=== PATIENT | male | born 1990 | race African-American/Black ===

== ENCOUNTER 2020-05-31 22:42 | Inpatient (IN) ==
[2020-05-31] MEDS ORDERED: LORazepam 2 MG/4 ML VIAL IV STA (23:32)
[2020-05-31 23:48] LABS: Basophils # (auto) 0.01 K/uL (0-0.2); Basophils % (auto) 0.1 %; Eosinophils # (auto) 0.01 K/uL (0-0.5); Eosinophils % (auto) 0.1 %; Hematocrit (blood only) 37.6 % (42-52); Hemoglobin 13.4 g/dL (14.0-18.0); Immature Granulocytes # (auto) 0.02 K/uL (0.00-0.02); Immature Granulocytes % (auto) 0.2 %; Lymphocytes # (auto) 0.64 K/uL (1.2-3.4); Lymphocytes % (auto) 7.6 %; Mean Corpuscular Hemoglobin 35.1 pg (25-34); Mean Corpuscular Hgb Conc 35.6 g/dL (32-36); Mean Corpuscular Volume 98.4 fL (80-100); Mean Platelet Volume 9.9 fL (7.4-10.4); Monocytes # (auto) 0.74 K/uL (0.11-0.59); Monocytes % (auto) 8.8 %; Neutrophils # (auto) 6.97 K/uL (1.4-6.5); Neutrophils % (auto) 83.2 %; Platelet Count 259 K/uL (130-400); RDW Coefficient of Variation 13.4 % (11.5-14.5); RDW Standard Deviation 48.3 fL (36.4-46.3); Red Blood Count 3.82 M/uL (4.7-6.1); White Blood Count 8.39 K/uL (4.8-10.8)
[2020-05-31] MEDS ORDERED: KETOROLAC TROMETHAMINE 15 MG/ML VIAL IV STA (23:51)
--- NOTE | 2020-05-31 23:53 | Emergency Department Note ---
Impression & Plan Alcohol withdrawal seizure, Headache, Open wound of tongue due to bite ED Provider Note Provider: Maico Jain MD DATE OF SERVICE: 05/31/2020 CHIEF COMPLAINT: Seizure HISTORY OF PRESENT ILLNESS: Patient is a 29-year-old gentleman history of Crohn's disease and C. difficile colitis presenting from [facility] today via ambulance after seizure type event. By report the patient evidently just arrived there this evening from [facility] for rehab from alcohol usage. Denies other drug usage. States his last drink of alcohol was at about 24 hours ago and was liquor. Denies any hallucinations. Patient states he was sitting waiting to be registered and checked in when all of a sudden he lost consciousness. Next member waking up with people around him of having a headach e and feeling generally weak all over and having some pain in his tongue. Patient states he does have a history of withdrawal seizures last about a month ago. Not on seizure medication. EMS reports the patient evidently fell forward striking his face and seizure lasted approximately 10 minutes. Did not receive any medications prior to arrival or at the facility today. Patient denies significant abdominal pain or issues with diarrhea at this time. States he currently has a headache and his tongue hurts. Denies incontinence. Denies any hallucinations. REVIEW OF SYSTEMS: A total of 10 review of systems was obtained and negative except as stated above in the HPI. PAST MEDICAL HISTORY: As noted above MEDICATIONS: Reviewed home medication list, chronically on prednisone SOCIAL HISTORY: Denies drug use, reports regular heavy alcohol use last 24 hours ago PHYSICAL EXAM: GENERAL: alert and oriented in no acute distress on stretcher Head: normocephalic with some swelling of the lower lip with some slight ecchymosis. EYES: No injection, discharge or icterus. PERRL NECK: Trachea midline. Supple. ENT: Mucous membranes pink and moist with bilateral contusion and some slight small lacerations to the lateral edges of the tongue consistent with bite longo. Pharynx without erythema or exudate. LUNGS: Airway patent. No retractions. Breath sounds clear with good air entry bilaterally. HEART: Regular rate and rhythm. No chest wall tenderness ABDOMEN: Soft and non-tender, without guarding or rebound. SKIN: Acyanotic, warm, dry, without rashes EXTREMITIES: Without swelling, tenderness or deformity NEUROLOGICAL: No focal deficits. No aphasia. No facial droop or slurred speech. EK beats per normal sinus rhythm. No PVC or PAC. No acute ST segment elevation or depression. QTC 457 CONTINUOUS CARDIAC MONITORING: was ordered and showed a heart rate of 90 bpm in normal sinus rhythm PDMP was checked without noted issue. GCS 15. Patient's laboratory studies and imaging reviewed. Differential includes Epilepsy, infection, hypoglycemia, electrolyte abnormalities, cardiac sources, intracerebral event, trauma, toxicologic, neurologic, syncope, as well as other pathologies. IMPRESSION/MEDICAL DECISION MAKING: Patient presents with what sounds like a seizure likely withdrawal given recent cessation of alcohol use 24 hours prior. Not significantly hypertensive or tachycardic now denies hallucinations. Does report a history of seizures. Currently on prednisone. Patient does not appear meningitic and doubt infection. Basic labs, medical alcohol, EKG and given that he fell a CT of the head were obtained. CT the head per report below without significant findings. Does have some significant trauma to the tongue as well as some bruising and swelling to the lower lip. No acute dental injury appreciated. Nothing here that requires closure or repair but again seems consistent with seizure. Prophylactically given a dose of IV Ativan here given recent alcohol usage. Labs without significant leukocytosis and again doubt infection. Do note a borderline anemia. No significant electrolyte abnormality. AST 49 ALT 54 not significantly abnormal. Alcohol level undetectable. No anion gap appreciated. Given some Toradol and some Tylenol help with headache. Patient reevaluation not significantly hypertensive or tachycardic. All does not appear to be in jesus withdrawal at this time given the seizure and his history discussed with patient further observation and he was in agreement this plan. Rapid Covid test ordered and negative. DIAGNOSIS: Alcohol withdrawal seizure, tongue bite, headache DISPOSITION: Hospitalist will evaluate Patient was agreeable with this plan. Preliminary Findings Only See Final Report For Complete Findings CT HEAD: No acute intracranial hemorrhage, edema or mass. No extra-axial fluid collection. No calvarial fracture. Visualized orbits, paranasal sinuses and mastoids are unremarkable. Radiologist: Nadeem Robledo M.D. Past Med/Surg History Social History Smoking Status: Never smoker Preferred Language: Lithuanian Feels Safe at Home: Yes Allergies Allergies Allergy/AdvReac Type Severity Reaction Status Date / Time metronidazole [From Flagyl] Allergy Severe Redness of Verified 06/01/20 00:15 Skin Home Meds Home Medications Medication Instructions Recorded Confirmed clonidine HCl 0.1 mg PO TID PRN 05/31/20 05/31/20 disulfiram 250 mg PO QAM 05/31/20 05/31/20 promethazine 25 mg PO Q6 PRN 05/31/20 05/31/20 Results & Data (ED) Vital Signs Vital Signs - 24 hr 05/31/20 22:50 05/31/20 23:00 05/31/20 23:15 Temperature 36.8 C Temperature Source Oral Pulse Rate 97 H 98 H Pulse Rate from SpO2 Sensor 99 H Respiratory Rate 14 16 Blood Pressure 110/76 111/76 Blood Pressure Mean 87 87 Pulse Oximetry 97 95 95 Oxygen Delivery Method Room Air Room Air Sepsis Recent Fever Within 48 Hours No Sepsis New/Unexplained Change in Mental Status No Sepsis Action Taken by Nursing No Action Required 05/31/20 23:27 05/31/20 23:30 06/01/20 00:00 Temperature Temperature Source Pulse Rate 95 H 90 83 Pulse Rate from SpO2 Sensor 95 H 90 83 Respiratory Rate 18 18 20 Blood Pressure 120/74 121/82 110/79 Blood Pressure Mean 89 95 89 Pulse Oximetry 100 98 96 Oxygen Delivery Method Room Air Sepsis Recent Fever Within 48 Hours Sepsis New/Unexplained Change in Mental Status Sepsis Action Taken by Nursing 06/01/20 00:30 06/01/20 01:00 06/01/20 01:30 Temperature Temperature Source Pulse Rate 90 93 H 87 Pulse Rate from SpO2 Sensor 91 H 92 H 87 Respiratory Rate 16 18 21 Blood Pressure 112/79 114/80 115/81 Blood Pressure Mean 90 91 92 Pulse Oximetry 96 95 97 Oxygen Delivery Method Room Air Room Air Room Air Sepsis Recent Fever Within 48 Hours Sepsis New/Unexplained Change in Mental Status Sepsis Action Taken by Nursing 06/01/20 02:00 Temperature Temperature Source Pulse Rate 89 Pulse Rate from SpO2 Sensor 90 Respiratory Rate 18 Blood Pressure 113/79 Blood Pressure Mean 90 Pulse Oximetry 96 Oxygen Delivery Method Room Air Sepsis Recent Fever Within 48 Hours Sepsis New/Unexplained Change in Mental Status Sepsis Action Taken by Nursing Laboratory Data Result diagrams: 05/31/20 23:36 05/31/20 23:36 Lab Results 05/31/20 05/31/20 05/31/20 Range/Units 23:36 23:36 23:36 WBC 8.39 (4.8-10.8) K/uL RBC 3.82 L (4.7-6.1) M/uL Hgb 13.4 L (14.0-18.0) g/dL Hct 37.6 L (42-52) % MCV 98.4 (80-100) fL MCH 35.1 H (25-34) pg MCHC 35.6 (32-36) g/dL RDW Std Deviation 48.3 H (36.4-46.3) fL RDW Coeff of Adele 13.4 (11.5-14.5) % Plt Count 259 (130-400) K/uL MPV 9.9 (7.4-10.4) fL Immature Gran % (Auto) 0.2 % Neut % (Auto) 83.2 % Lymph % (Auto) 7.6 % [place] % (Auto) 8.8 % Eos % (Auto) 0.1 % Baso % (Auto) 0.1 % Neut # (Auto) 6.97 H (1.4-6.5) K/uL Lymph # (Auto) 0.64 L (1.2-3.4) K/uL [place] # (Auto) 0.74 H (0.11-0.59) K/uL Eos # (Auto) 0.01 (0-0.5) K/uL Baso # (Auto) 0.01 (0-0.2) K/uL Immature Gran # (Auto) 0.02 (0.00-0.02) K/uL Sodium 138 (136-145) mmol/L Potassium 3.8 (3.5-5.1) mmol/L Chloride 103 (98-107) mmol/L Carbon Dioxide 27 (21-32) mmol/L Anion Gap 9.0 (3-11) BUN 13 (7-18) mg/dl Creatinine 1.16 (0.6-1.4) mg/dl Est Cr Clr Drug Dosing 108.0 ml/min Est GFR ( Amer) 99.5 Est GFR (Non-Af Amer) 85.8 BUN/Creatinine Ratio 11.1 (10-20) Glucose 92 (70-99) mg/dl Calcium 8.9 (8.5-10.1) mg/dl Magnesium 2.2 (1.8-2.4) mg/dl Total Bilirubin 1.6 H (0.2-1) mg/dl AST 49 H (15-37) U/L ALT 54 (12-78) U/L Alkaline Phosphatase 73 (45-117) U/L Total Protein 7.5 (6.4-8.2) gm/dl Albumin 3.7 (3.4-5.0) gm/dl Globulin 3.8 (2.5-4.0) gm/dl Albumin/Globulin Ratio 1.0 (0.9-2) Ethyl Alcohol mg/dL < 3.0 (0-3) mg/dl COVID-19 Eval Order SARS-CoV-2, RNA, NAAT (NEGATIVE) 06/01/20 06/01/20 Range/Units 01:12 01:12 WBC (4.8-10.8) K/uL RBC (4.7-6.1) M/uL Hgb (14.0-18.0) g/dL Hct (42-52) % MCV (80-100) fL MCH (25-34) pg MCHC (32-36) g/dL RDW Std Deviation (36.4-46.3) fL RDW Coeff of Adele (11.5-14.5) % Plt Count (130-400) K/uL MPV (7.4-10.4) fL Immature Gran % (Auto) % Neut % (Auto) % Lymph % (Auto) % [place] % (Auto) % Eos % (Auto) % Baso % (Auto) % Neut # (Auto) (1.4-6.5) K/uL Lymph # (Auto) (1.2-3.4) K/uL [place] # (Auto) (0.11-0.59) K/uL Eos # (Auto) (0-0.5) K/uL Baso # (Auto) (0-0.2) K/uL Immature Gran # (Auto) (0.00-0.02) K/uL Sodium (136-145) mmol/L Potassium (3.5-5.1) mmol/L Chloride (98-107) mmol/L Carbon Dioxide (21-32) mmol/L Anion Gap (3-11) BUN (7-18) mg/dl Creatinine (0.6-1.4) mg/dl Est Cr Clr Drug Dosing ml/min Est GFR ( Amer) Est GFR (Non-Af Amer) BUN/Creatinine Ratio (10-20) Glucose (70-99) mg/dl Calcium (8.5-10.1) mg/dl Magnesium (1.8-2.4) mg/dl Total Bilirubin (0.2-1) mg/dl AST (15-37) U/L ALT (12-78) U/L Alkaline Phosphatase (45-117) U/L Total Protein (6.4-8.2) gm/dl Albumin (3.4-5.0) gm/dl Globulin (2.5-4.0) gm/dl Albumin/Globulin Ratio (0.9-2) Ethyl Alcohol mg/dL (0-3) mg/dl COVID-19 Eval [facility], RNA, NAAT NEGATIVE (NEGATIVE) Administered Medications Discontinued Medications Acetaminophen (Acetaminophen 500 Mg Tab) 1,000 mg PO NOW STA Stop: 06/01/20 00:41 Last Admin: 06/01/20 01:32 Dose: 1,000 mg Documented by: [id number] Lorazepam (Ativan) 2 mg in 4 mls @ 4 mls/min IV NOW STA Stop: 05/31/20 23:33 Last Admin: 05/31/20 23:46 Dose: 4 mls/min Documented by: [id number] Ketorolac Tromethamine (Ketorolac Tromethamine 15 Mg/Ml Vial) 10 mg IV NOW STA Stop: 05/31/20 23:52 Last Admin: 06/01/20 00:00 Dose: 10 mg Documented by: [id number] Discharge Plan Visit Data Chief Complaint: Seizure Stated Complaint: SEIZURE, WITHDRAWAL ED Provider: Maico Jain Discharge Problem: Alcohol withdrawal seizure, Headache, Open wound of tongue due to bite Forms [facility] Prescriptions Prescriptions: No Action clonidine HCl 0.1 mg tablet 0.1 mg PO TID PRN (Reason: tremors) RF: 0 disulfiram 250 mg tablet 250 mg PO QAM RF: 0 promethazine 25 mg tablet 25 mg PO Q6 PRN (Reason: Nausea) RF: 0 Discharge Problem: Alcohol withdrawal seizure Qualifiers: Complication of substance-induced condition: uncomplicated Qualified Code(s): F10.230 - Alcohol dependence with withdrawal, uncomplicated Headache Qualifiers: Headache type: unspecified Headache chronicity pattern: acute headache Intractability: intractable Qualified Code(s): R51.9 - Headache, unspecified
[2020-06-01 00:06] LABS: Albumin Level 3.7 gm/dl (3.4-5.0); BUN Creatinine Ratio 11.1 (10-20); Calcium 8.9 mg/dl (8.5-10.1); Est GFR (African American) 99.5; Est GFR (Non-African American) 85.8; Magnesium 2.2 mg/dl (1.8-2.4); Potassium 3.8 mmol/L (3.5-5.1)
[2020-06-01 00:08] LABS: Bilirubin,Total 1.6 mg/dl (0.2-1); Globulin 3.8 gm/dl (2.5-4.0); Total Protein 7.5 gm/dl (6.4-8.2)
[2020-06-01] MEDS ORDERED: ACETAMINOPHEN 500 MG TAB PO STA (00:40)
--- NOTE | 2020-06-01 03:03 | History & Physical Report ---
Date of Service June 01, 2020 Assessment & Plan (1) Alcohol withdrawal seizure: Alcohol withdrawal seizure- Admit to monitored bed AWSS order set Placed on gabapentin standing orders per protocol Placed on as needed Ativan IV per protocol NSS + KCl 20 mEq 100 mils per hour Zofran 4 mg IV every 6 hours as needed Thiamine 100 mg p.o. daily Folic acid 1 mg p.o. daily Nephrocaps p.o. daily Present on Admission?: Yes (2) Open wound of tongue due to bite: Local care Present on Admission?: Yes History of Present Illness Chief Complaint: The patient presents to the emergency department via ambulance after presenting to [facility] [place] today with seizure type activity Primary Care Provider: NO PCP The patient is a 29-year-old male with a past medical history including Crohn's disease, C. difficile colitis, alcohol abuse and previous alcohol withdrawal seizures. He presented to [facility] [place] today as a transfer from [facility] for rehab from alcohol abuse. Patient was waiting to be registered to check in when he suddenly lost consciousness. During the seizure activity he did bite his tongue, and complained of a headache. He did have a history of withdrawal seizures 1 month ago. Allergies Allergy/AdvReac Type Severity Reaction Status Date / Time metronidazole [From Flagyl] Allergy Severe Redness of Verified 06/01/20 00:15 Skin Home Medications Medication Instructions Recorded Confirmed Type clonidine HCl 0.1 mg PO TID PRN 05/31/20 05/31/20 History disulfiram 250 mg PO QAM 05/31/20 05/31/20 History promethazine 25 mg PO Q6 PRN 05/31/20 05/31/20 History Past Med/Surg History Social History Smoking Status: Never smoker Preferred Language: Upper Sorbian Feels Safe at Home: Yes Review of Systems Review of Systems: The patient denies chest pain, palpitations, shortness of breath, dyspnea on exertion, cough, lower extremity swelling, sore throat, fevers, chills, sweats, nausea, vomiting, diarrhea , constipation, abdominal pain, pelvic pain, blood in urine or stool, dysuria, urinary frequency or urgency,rash, abnormal bruising or bleeding, imbalance, focal weakness, numbness or tingling in arms or legs, generalized arthralgias or myalgias, back or neck pain, or night sweats. The review of systems is otherwise negative other than for that already noted above, and at least 10 systems have been reviewed. Physical Exam Physical Exam: The patient is awake, alert and oriented 3, well developed and well nourished, normocephalic and atraumatic, lying in bed and in no acute distress. HEENT--PERRL, EOMI, mucous membranes and oropharynx dry. Laceration right side of tongue. Neck--supple. No JVD. No bruits. Thyroid normal, trachea midline, no adenopathy. Heart--normal S1 and S2. No murmurs, rubs or gallops. Lungs--clear bilaterally, no respiratory distress, no accessory muscle use. Abdomen--normal bowel sounds and soft. Nontender. Nondistended, no hernias or masses, no organomegaly. Extremities--no cyanosis or clubbing. No edema. Dermatologic--normal skin turgor, normal color, no abnormal lymph nodes, no rash. Neurologic--cranial nerves II through XII grossly intact. Rheumatologic--normal range of motion. Psychiatric--normal affect. Results & Data Results & Data ([facility]) Vital Signs (Past 12 Hours) Vital Signs Temp Pulse Resp BP Pulse Ox 06/01/20 02:30 84 21 127/90 96 06/01/20 02:00 89 18 113/79 96 06/01/20 01:30 87 21 115/81 97 06/01/20 01:00 93 H 18 114/80 95 06/01/20 00:30 90 16 112/79 96 06/01/20 00:00 83 20 110/79 96 05/31/20 23:30 90 18 121/82 98 05/31/20 23:27 95 H 18 120/74 100 05/31/20 23:15 95 05/31/20 23:00 98 H 16 111/76 95 05/31/20 22:50 98.2 F 97 H 14 110/76 97 Laboratory Results Laboratory Results WBC 8.39 K/uL (4.8-10.8) 05/31/20 23:36 RBC 3.82 M/uL (4.7-6.1) L 05/31/20 23:36 Hgb 13.4 g/dL (14.0-18.0) L 05/31/20 23:36 Hct 37.6 % (42-52) L 05/31/20 23:36 MCV 98.4 fL (80-100) 05/31/20 23:36 MCH 35.1 pg (25-34) H 05/31/20 23:36 MCHC 35.6 g/dL (32-36) 05/31/20 23:36 RDW Std Deviation 48.3 fL (36.4-46.3) H 05/31/20 23:36 RDW Coeff of Adele 13.4 % (11.5-14.5) 05/31/20 23:36 Plt Count 259 K/uL (130-400) 05/31/20 23:36 MPV 9.9 fL (7.4-10.4) 05/31/20 23:36 Immature Gran % (Auto) 0.2 % 05/31/20 23:36 Neut % (Auto) 83.2 % 05/31/20 23:36 Lymph % (Auto) 7.6 % 05/31/20 23:36 [place] % (Auto) 8.8 % 05/31/20 23:36 Eos % (Auto) 0.1 % 05/31/20 23:36 Baso % (Auto) 0.1 % 05/31/20 23:36 Neut # (Auto) 6.97 K/uL (1.4-6.5) H 05/31/20 23:36 Lymph # (Auto) 0.64 K/uL (1.2-3.4) L 05/31/20 23:36 [place] # (Auto) 0.74 K/uL (0.11-0.59) H 05/31/20 23:36 Eos # (Auto) 0.01 K/uL (0-0.5) 05/31/20 23:36 Baso # (Auto) 0.01 K/uL (0-0.2) 05/31/20 23:36 Immature Gran # (Auto) 0.02 K/uL (0.00-0.02) 05/31/20 23:36 Sodium 138 mmol/L (136-145) 05/31/20 23:36 Potassium 3.8 mmol/L (3.5-5.1) 05/31/20 23:36 Chloride 103 mmol/L (98-107) 05/31/20 23:36 Carbon Dioxide 27 mmol/L (21-32) 05/31/20 23:36 Anion Gap 9.0 (3-11) 05/31/20 23:36 BUN 13 mg/dl (7-18) 05/31/20 23:36 Creatinine 1.16 mg/dl (0.6-1.4) 05/31/20 23:36 Est Cr Clr Drug Dosing 108.0 ml/min 05/31/20 23:36 Est GFR ( Amer) 99.5 05/31/20 23:36 Est GFR (Non-Af Amer) 85.8 05/31/20 23:36 BUN/Creatinine Ratio 11.1 (10-20) 05/31/20 23:36 Glucose 92 mg/dl (70-99) 05/31/20 23:36 Calcium 8.9 mg/dl (8.5-10.1) 05/31/20 23:36 Magnesium 2.2 mg/dl (1.8-2.4) 05/31/20 23:36 Total Bilirubin 1.6 mg/dl (0.2-1) H 05/31/20 23:36 AST 49 U/L (15-37) H 05/31/20 23:36 ALT 54 U/L (12-78) 05/31/20 23:36 Alkaline Phosphatase 73 U/L (45-117) 05/31/20 23:36 Total Protein 7.5 gm/dl (6.4-8.2) 05/31/20 23:36 Albumin 3.7 gm/dl (3.4-5.0) 05/31/20 23:36 Globulin 3.8 gm/dl (2.5-4.0) 05/31/20 23:36 Albumin/Globulin Ratio 1.0 (0.9-2) 05/31/20 23:36 Ethyl Alcohol mg/dL < 3.0 mg/dl (0-3) 05/31/20 23:36 COVID-19 Eval Order Covid19 [facility]Now [facility] 06/01/20 01:12 SARS-CoV-2, RNA, NAAT NEGATIVE (NEGATIVE) 06/01/20 01:12 Diagnostic Findings [facility] Patient: CHARLES SANCHEZ (Male) : 89 Status: ER Date: 05/31/20 23:27 Room #: History: SEIZURE, HIT FOREHEAD Slices: 66 Priors: Tech: Raymundo Sharp @ [phone] Exams: CT HEAD Contrast: Accession Numbers: [id number] Preliminary Findings Only See Final Report For Complete Findings CT HEAD: No acute intracranial hemorrhage, edema or mass. No extra-axial fluid collection. No calvarial fracture. Visualized orbits, paranasal sinuses and mastoids are unremarkable. Radiologist: Nadeem Robledo M.D. Study ready at 23:30 and initial results transmitted at 23:34 *This report constitutes a preliminary interpretation only. Non-acute findings felt to be unrelated to the clinical presentation may not be discussed in this report. The study will be interpreted and a final report will be generated by the local Radiologist the following shift. To reach the hospital radiology department call [phone]. If a discrepancy is found between the preliminary and final interpretations of this study, please notify us via our Client Portal at [email or web address].You can also fax this report with a description of the discrepancy, or include the final report, to our daytime fax number [phone].If faxing, please indicate the severity of discrepancy using one of the following categories: [ ] 1 - Agree/Informational [ ] 2 - Unlikely to Affect Management [ ] 3 - Possible Eventual Change of Management [ ] 4 - Probable Immediate Change of Management For all other patient related information, please fax us at [phone]. [id number] Code Status & VTE Plan Code Status Full code VTE Prophylaxis Plan VTE Prophylaxis will be ordered: Yes PG Care Time/CCT Total # of Minutes Spent Total Time Spent with Patient: Total time spent is greater than 50% in coordination of care (as documented) at patient's floor/unit and/or counseling patient: Coding Level of Care Code 74044 Initial Inpt Care Lvl 2 Diagnoses Alcohol withdrawal seizure F10.230; R56.9 Complication of substance-induced condition: uncomplicated Open wound of tongue due to bite S01.552A (1) Alcohol withdrawal seizure Complication of substance-induced condition: uncomplicated Qualified Code(s): F10.230 - Alcohol dependence with withdrawal, uncomplicated; R56.9 - Unspecified convulsions
[2020-06-01] MEDS ORDERED: GABAPENTIN 1200MG ALCOHOL WITHDRAWAL LOAD PO STA (03:28)
[2020-06-01] MEDS ORDERED: LORazepam 1 MG TAB PO PRN (03:28)
[2020-06-01] MEDS ORDERED: GABAPENTIN 600 MG TAB PO ONE (03:28)
[2020-06-01] MEDS: NSS + 20MEQ KCL 20 MEQ/1,000 ML BAG IV SCH ×3 (04:20→22:05)
--- NOTE | 2020-06-01 07:13 | CT Scan Report ---
CT OF THE HEAD WITHOUT CONTRAST CLINICAL HISTORY: Seizure. COMPARISON STUDY: No previous studies for comparison. CT DOSE: 614.27 mGy.cm TECHNIQUE: Helical axial images of the head were obtained without IV contrast. Automated exposure con trol was utilized for the study. A dose lowering technique was utilized adhering to the principles o f ALARA. FINDINGS: No acute intracranial hemorrhage, midline shift or mass effect is present. The ventricular system is unremarkable. The basal cisterns are patent. No extra-axial collections are present. There are no findings to suggest acute dural sinus thrombosis or acute territorial infarct. No significant calvarial abnormalities are present. Visualized portions of the sinuses and mastoid air cells are leon ar. IMPRESSION: No acute intracranial findings. ACT 112: Negative or not required by law. Electronically signed by: Vince Bell M.D. 06/01/2020 7:12 AM
[2020-06-01] MEDS ORDERED: GABAPENTIN 600 MG TAB PO SCH ×2 (08:13→22:13)
[2020-06-01] MEDS: NEPHROCAPS PO SCH (08:25)
[2020-06-01] MEDS: FOLIC ACID 1 MG TAB PO SCH (08:25)
[2020-06-01] MEDS: THIAMINE HCL 100 MG TAB PO SCH (08:25)
[2020-06-01] MEDS: ACETAMINOPHEN 325 MG TAB PO PRN ×2 (08:26→20:03)
[2020-06-01] MEDS: ONDANSETRON INJ 2 MG/ML 2 ML VIAL IV PRN (08:27)
[2020-06-01 09:56] LABS: Amphetamines+Metham, Urine Neg (Neg); Barbiturates, Urine Neg (Neg); Benzodiazepine, Urine Neg (Neg); Cocaine, Urine Neg (Neg); MDMA (Ecstacy), Urine Neg (Neg); Methadone, Urine Neg (Neg); Opiate, Urine Neg (Neg); Phencyclidine, Urine Neg (Neg)
--- NOTE | 2020-06-01 11:10 | Electrocardiogram Report ---
Test Reason : Blood Pressure : / mmHG Vent. Rate : 095 BPM Atrial Rate : 095 BPM P-R Int : 180 ms QRS Dur : 094 ms QT Int : 360 ms P-R-T Axes : 060 -19 054 degrees QTc Int : 452 ms Normal sinus rhythm Normal ECG No previous ECGs available Confirmed by Robert Mesa ([id number]) on 06/01/2020 11:10:13 AM Referred By: REFERRED SELF Confirmed By:Robert Mesa
--- NOTE | 2020-06-01 13:11 | Medical Student Progress Note ---
Date of Service June 01, 2020 Assessment & Plan (1) Alcohol withdrawal seizure: 29yo male with a history of Crohns and significant alcohol use (roughly 2L/day of crown apple liquor) and history of alcohol withdrawal seizures presenting with an alcohol withdrawal seizure yesterday as well as a 3 week history of increased abdominal pain accompanied by diarrhea. With regard to the alcohol withdrawal seizure: -Vitals are stable today with no tachycardia, hypotension, or fever. Most recent RAFAEL score of 1 with no lorazepam needed at this time. Total bili 1.6, Cr 1.16, AST 49 likely related to alcohol use. Urine tox screen completely negative and ethyl alcohol level <3.0. Head CT showed no acute findings, and EKGs yesterday and today normal with no changes. -Given his presentation and low RAFAEL scores, likelihood of further seizures or DT unlikely, but still within 72 hours of last drink so we will continue to monitor until tomorrow. -Continue gabapentin, thiamine, and folic acid as well as NSS/KCl PRN and Zofran PRN. -Underlying etiology of alcohol use disorder is likely a combination of underlying anxiety, underlying insomnia, self-medicating his Crohns disease with alcohol, and stress related to Covid and his geographical instability. Pt is motivated to pursue rehab and hopeful that his alcohol use can decrease with time. Disposition: Case management spoke with [facility] and they are comfortable taking pt back when he is medically stable, which will likely be tomorrow. They can reportedly provide transportation. Plan to discharge tomorrow if no setbacks. Complication of substance-induced condition: uncomplicated Qualified Code(s): F10.230 - Alcohol dependence with withdrawal, uncomplicated; R56.9 - Unspecified convulsions (2) Open wound of tongue due to bite: Lacerations on tongue, worse on left than right but neither requiring sutures. Pt able to eat and drink effectively, though with some pain. Continue to monitor and allow to heal. (3) Crohn disease: Pt has longstanding Crohns that has not been optimally treated for more than a year. He is not currently following with GI and while infusions of biologics have been effective in the past, they have been discontinued since he left [place]. He received prednisone from his PCP about three weeks ago for a possible flare involving increased abdominal pain and blood/mucus in his stool, but he has not had prednisone in several days and his symptoms continue. -Start budesonide eight-week taper, with plan for 9mg PO qAM for 2-3 weeks, 6mg POqAM for 2-3 weeks, then 3mg qAM for 2-3 weeks, with plan to follow up with outpatient GI wherever he is geographically by the time the taper completes. Admission and Anticipated Discharge Date Admission Date: June 01, 2020 Supervising Attestation I personally examined the patient and verified all franks points of history and exam, discussed case, and agree with decision making with Henok Bobo MS4 Feeling better. Still somewhat shaky, no real heart racing, anxiety seems to be reasonably controlled. Vitals noted, in general he is awake and alert pleasant no distress. HEENT normocephalic atraumatic mucous membranes moist. Breathing unlabored no accessory muscle use good effort. He has a very fine hand tremor mostly when he holds his hands up but not really at rest, no focal neuro deficits. Alcohol withdrawal seizurenow stable. Continue to follow Alcohol withdrawalseizure certainly put him at higher risk for more severe withdrawal, but fortunately he is now about 48 hours after his last drink without much of any progression. Continue to follow into tomorrow. Crohn's diseaseit sounds like he did well with some sort of biologic infusion, but obviously this will not be feasible as a "hit or miss" kind of treatment depending on where he is living. In that respect we discussed once he has settled in an area for a longer period of time getting set up with a contract consultant would make it fairly easy to get back on track with infusions , and in the meantime we can manage the Crohn's with Entocort over a few months taper, and then if he still does not have stability in his living situation possibly continue to try some maintenance with something along the lines of mesalamine, but that ultimately this would be best managed by a contract consultant, and that we would not want to leave things "open-ended" too long. That said, having uncontrolled Crohn's does seem to be part of the mixture of situations leading to stress and leading to the alcohol abuse, so it does appear to be in his benefit to take measures to try to get it under better control. Otherwise as above. Subjective Mr. Barnes is a 29yo male with a PMHx of Crohns disease, C diff, and alcohol use disorder including previous alcohol withdrawal one month ago who presented to the ED yesterday evening following an alcohol withdrawal related seizure. He recounts that he has been geographically displaced--initially living in [place] for college until [place] hit last year, then moving back home with his family in [place], [place]--and was living at an alcohol rehab center in [facility] until he was transferred to [facility] for alcohol rehab yesterday. On Sunday he drank about 2L of liquor (crown apple) which he reports is his baseline amount, and while waiting to check in at [facility] he lost consciousness and is reported to have a seizure that resulted in a tongue laceration, MARTINS, and post-ictal confusion lasting several hours. He says that today he is feeling mostly better from an alcohol withdrawal standpoint, experiencing mild tremors and spasms mostly in his arms, but no confusion, palpitations, and minimal anxiety. He says he has had some insomnia lately related mostly to racing thoughts, which is one of his alcohol triggers. He is also somewhat nauseous, but was able to drink fluids and ate a full breakfast including eggs and toast. In addition to the alcohol withdrawal, Mr. Barnes states that he had Crohns disease diagnosed at age 16 and while he had a GI doctor in [place] who gave him infusions that worked fairly well for the Crohns, he has not been on any maintenance medication since he left more than a year ago and does not currently follow with GI. About 3 weeks ago he states he started to have increased abdominal pain as well as increased spotty dark red blood and mucous in his stool, which occurred most recently this morning. His PCP gave him prednisone which he had been taking but has not had for several days. Review of Systems Review of Systems: All systems reviewed & are unremarkable except as noted in HPI & below Constitutional: no fever, no chills, no fatigue and no weakness Respiratory: no cough and no dyspnea Cardiovascular: no chest pain and no palpitations Gastrointestinal: + abdominal pain, + diarrhea/loose stools and + blood in stools (reports spotty dark bloody stool with mucous); no constipation Genitourinary: no dysuria Neurologic: no headache(s) Psychiatric: + anxiety; no confusion Physical Exam Constitutional: WD/WN, vitals as above Eyes: PERRL, conjunctivae normal, anicteric sclerae ENMT: external ear and nose normal, oropharynx normal Respiratory: normal respiratory effort Auscultation: lungs clear to auscultation bilaterally; no crackles, no rales, no rhonchi and no wheezes Cardiovascular: RRR, no murmur, no edema Heart Sounds: normal S1 and normal S2 Vessels: no carotid bruit Gastrointestinal (Abdomen): Inspection/Auscultation: abdomen normal to inspection and normal bowel sounds; abdomen not distended Percu ssion/Palpation: + abdomen tender (mild-moderate pain with palpation across the RLQ and LLQ); no guarding, abdomen not rigid and no hepatosplenomegaly Musculoskeletal: no cyanosis or clubbing, extremities motor strength 5/5 Skin: no rashes, warm and dry Neurologic: CN's II-XI intact bilaterally Psychiatric: A+Ox3, euthymic affect Results & Data ([facility]) Vital Signs (Past 12 Hours) Vital Signs Temp Pulse Pulse Resp BP BP Pulse Ox 06/01/20 11:11 36.5 C 82 16 120/80 98 06/01/20 08:50 87 06/01/20 08:02 36.8 C 89 16 111/75 97 06/01/20 03:55 36.9 C 88 20 115/80 99 06/01/20 03:20 86 06/01/20 03:19 36.9 C 88 20 115/80 99 06/01/20 02:30 84 21 127/90 96 06/01/20 02:00 89 18 113/79 96 06/01/20 01:30 87 21 115/81 97 06/01/20 01:00 93 H 18 114/80 95
[2020-06-01] MEDS: BUDESONIDE EC 3 MG CAP PO SCH (14:30)
[2020-06-01] MEDS ORDERED: LOPERAMIDE HCL 2 MG CAP PO STA (18:03)
--- NOTE | 2020-06-01 18:47 | Billing Data ---
Date of Service June 01, 2020 Coding Level of Care Code 55892 Subseq Hosp Care Lvl 3
[2020-06-02] MEDS: BUDESONIDE EC 3 MG CAP PO SCH (07:41)
[2020-06-02] MEDS: THIAMINE HCL 100 MG TAB PO SCH (07:42)
[2020-06-02] MEDS: NEPHROCAPS PO SCH (07:42)
[2020-06-02] MEDS: FOLIC ACID 1 MG TAB PO SCH (07:43)
[2020-06-02] MEDS: NSS + 20MEQ KCL 20 MEQ/1,000 ML BAG IV SCH (07:43)
[2020-06-02] MEDS: ONDANSETRON INJ 2 MG/ML 2 ML VIAL IV PRN (07:49)
[2020-06-02] MEDS ORDERED: methylPREDNISolone 40 MG in SYRINGE 0 ML IV ONE (10:30)
--- NOTE | 2020-06-02 15:54 | Discharge Summary ---
Date of Service June 02, 2020 Admission HPI Per Admitting Provider The patient is a 29-year-old male with a past medical history including Crohn's disease, C. difficile colitis, alcohol abuse and previous alcohol withdrawal seizures. He presented to [facility] today as a transfer from [facility] for rehab from alcohol abuse. Patient was waiting to be registered to check in when he suddenly lost consciousness. During the seizure activity he did bite his tongue, and complained of a headache. He did have a history of withdrawal seizures 1 month ago. Principal Diagnosis Alcohol withdrawal seizure Discharge Exam Constitutional WD/WN, vitals as above Eyes PERRL, conjunctivae normal, anicteric sclerae ENMT external ear and nose normal, oropharynx normal Respiratory normal respiratory effort Auscultation: lungs clear to auscultation bilaterally Cardiovascular RRR, no murmur, no edema Gastrointestinal (Abdomen) Inspection/Auscultation: abdomen normal to inspection and normal bowel sounds; abdomen not distended Percussion/Palpation: + abdomen tender (mild-moderate pain with palpation across the RLQ and LLQ); no guarding, abdomen not rigid and no hepatosplenomegaly Skin no rashes, warm and dry Discharge Data Allergies Allergy/AdvReac Type Severity Reaction Status Date / Time metronidazole [From Flagyl] Allergy Severe Redness of Verified 06/01/20 00:15 Skin Consultations 06/01/20 01:44 ED Decision to Admit Stat 06/01/20 03:28 Consult Case Management - Discharge Planning Routine Ordered Studies 05/31/20 23:08 CT head/brain wo con Urgent Hospital Course (1) Alcohol withdrawal seizure: 29yo male with a history of Crohns and significant alcohol use (roughly 2L/day of [place] apple liquor) and history of alcohol withdrawal seizures presenting with an alcohol withdrawal seizure yesterday as well as a 3 week history of increased abdominal pain accompanied by diarrhea. Alcohol withdrawal seizure: -no further seizure like activity or withdrawal symptoms while inpatient -has not required further doses of Ativan -going to [facility] following discharge to continue with inpatient rehab therapy -Underlying etiology of alcohol use is likely a combination of underlying anxiety, insomnia, self-medicating his Crohn's disease with alcohol, and stress related to geographical instability following start of pandemic (2) Crohn disease: Pt has longstanding Crohns that has not been optimally treated for more than a year. He is not currently following with GI and while infusions of biologics have been effective in the past, they have been discontinued since he left [place]. -Continue budesonide eight-week taper as following: -9mg daily for 3 weeks, 6mg daily for 3 weeks, then 3mg daily for 2 weeks -follow up with outpatient GI wherever he is geographically by the time the taper completes, patient thinks this will be [place] -consideration of Mesalamine if upon completion of budesonide taper patient has not achieved remission of Crohn's flare Total Time Total Time Spent Total Time Spent (In Minutes): Less than 30 Discharge Plan Discharge Items Patient Disposition: Home - Self-Care Reason For Visit: ALCOHOL WITHDRAWAL SEIZURES Discharge Diagnosis: Alcohol withdrawal Activity: Per Instructions section Non-emergency contact: Primary Care Provider and [employer] Call non-emergency contact if: you have any medication questions, your symptoms worsen and your pain is worsening Follow-up/Referrals: PCP,NO [Primary Care Provider] - Diet: Regular Addtl Attending Provider Instructions: You were seen and admitted following having an alcohol withdrawal seizure. During this hospitalization you had no further concerns for progressive withdrawal symptoms and remained stable as you continued to have increased time from last drink. As you continue to work with the rehab team you should continue to progress well in your recovery from alcohol use. For your Crohn's disease, with your current flare we have started you on Budesonide to assist in inducing remission of the flare. You should continue to take this daily for the next 8 weeks, it will be a gradual taper that will look like: 9mg a day for three weeks, 6mg a day for three weeks, and 3mg a day for two weeks. If you are still struggling with having control of your Crohn's towards the end of this treatment, you should discuss with your [employer] about starting mesalamine for continued induction of remission of your Crohn's. In the discussions with our team, we would like to keep in contact in order to make sure that you are continuing to do well with your recovery. Please reach out to Dr. Varner at [email or web address]. Pending Studies at Discharge: No Stand-Alone Forms: My [facility] [employer], Smoking Cessation Medications and DC Order Prescriptions: New budesonide 3 mg Capsule,Delayed,Extend.Release See Taper mg PO QAM 56 Days Qty: 119 RF: 0 Continued clonidine HCl 0.1 mg tablet 0.1 mg PO TID PRN (Reason: tremors) RF: 0 disulfiram 250 mg tablet 250 mg PO QAM RF: 0 promethazine 25 mg tablet 25 mg PO Q6 PRN (Reason: Nausea) RF: 0 Discharge Orders: Discharge Order (Routine); Ordered 06/02/20 Ordered By: Roscoe Dent Admission Data Admit Date/Time: 06/01/20 02:14 Attending Provider: Alex Varner Admit Provider: Daren Camargo Primary Care Provider: PCP,NO Other Providers: Daren Camargo Other Interventions: Discharge Summary Assessment (RN) Last Done: 06/02/20 11:19 Supervising Physician Co-Signing Physician Notes I personally examined the patient and verified all franks points of history and exam, discussed case, and agree with decision making with Dr Dent. Feeling okay. Main complaint is tongue discomfort. Discussed future and next steps.. Vitals noted, in general he is awake and alert pleasant no distress. HEENT normocephalic atraumatic mucous membranes moist. Breathing unlabored no accessory muscle use good effort. Essentially no tremor, no focal neuro deficits. Alcohol withdrawal seizurenow stable. Stable for return to rehab Alcohol withdrawalseizure certainly put him at higher risk for more severe withdrawal, but fortunately he is now about 72 hours after his last drink with no real signs or symptoms of withdrawal. Stable for discharge. Crohn's diseaseit sounds like he did well with some sort of biologic infusion (he believes Remicade), but obviously this will not be feasible as a "hit or miss" kind of treatment depending on where he is living. In that respect we discussed once he has settled in an area for a longer period of time getting set up with a wastewater treatment plant operator would make it fairly easy to get back on track with infusions, and in the meantime we can manage the Crohn's with Entocort over a few months taper (discussed risks and benefits), and then if he still does not have stability in his living situation possibly continue to try some maintenance with something along the lines of mesalamine, but that ultimately this would be best managed by a wastewater treatment plant operator, and that we would not want to leave things "open-ended" too long. That said, having uncontrolled Crohn's does seem to be part of the mixture of situations leading to stress and leading to the alcohol abuse, so it does appear to be in his benefit to take measures to try to get it under better control. Resident Activity Tracking Resident Involvement: Resident Care Provided Care Provided: Adult Hospital Medicine
--- NOTE | 2020-06-02 16:37 | Billing Data ---
Date of Service June 02, 2020 Coding Level of Care Code D/C Day Management <30 mins
[2020-06-03] MEDS ORDERED: GABAPENTIN 600 MG TAB PO SCH (02:13)
[2020-06-04] MEDS ORDERED: GABAPENTIN 600 MG TAB PO SCH (14:13)
== END 2020-06-02 14:31 | disposition home or self-care (01) ==
LOC: ED 22:42 → SUATTDRO 06-01 02:14 → 2N 06-01 02:14